=== PATIENT | male | born 1990 | race American Indian/Alaskan Native ===

== ENCOUNTER 2022-04-22 02:45 | Emergency (ER) | payer SELFPAY ==
[2022-04-22] MEDS ORDERED: IPRATROPIUM/ALBUTEROL SULFATE 3 ML AMPUL.NEB IH ONE (03:30)
[2022-04-22] MEDS: methylPREDNISolone Sod Succinate 125 MG/2 ML INJ IM ONE ×2 (04:19→04:23)
--- NOTE | 2022-04-22 04:49 | Emergency Department Report ---
ED Shortness of Breath HPI - General Chief Complaint: Adult Asthma Stated Complaint: ASTHMA ATTACK Time Seen by Provider: 04/22/22 03:30 Source: patient Mode of arrival: Ambulatory Limitations: No Limitations - History of Present Illness Initial Comments: 32-year-old black male with a past medical history of asthma presents to the emergency department for evaluation of 1 hour history of shortness of breath. He states that he left his asthma pump on the other side of town and came here requesting DuoNeb treatment only. He denies fever. Chest pain, nausea, vomiting, dizziness, and diaphoresis. MD Complaint: shortness of breath, "asthma attack" -: hour(s) (1) Pain Scale: 0 Known History Of: asthma Context: other (Left home inhaler) Associated Symptoms: denies other symptoms Treatments Prior to Arrival: none - Related Data Home Oxygen Therapy: No Allergies Allergy/AdvReac Type Severity Reaction Status Date / Time No Known Allergies Allergy Verified 04/22/22 02:59 ED Review of Systems ROS: Stated complaint: ASTHMA ATTACK Other details as noted in HPI Comment: All other systems reviewed and negative Constitutional: denies: chills, fever, malaise, weakness ENT: denies: ear pain, dental pain, congestion Respiratory: shortness of breath, wheezing Cardiovascular: denies: chest pain, palpitations Gastrointestinal: denies: abdominal pain, nausea, vomiting Musculoskeletal: denies: back pain Neurological: denies: headache, weakness ED Past Medical Hx - Past Medical History Previous Medical History?: Yes Hx Asthma: Yes - Surgical History Past Surgical History?: No - Social History Smoking Status: Unknown if ever smoked ED Physical Exam - General Limitations: No Limitations General appearance: alert, in no apparent distress - Head Head exam: Present: atraumatic, normocephalic - Eye Eye exam: Present: normal appearance. Absent: conjunctival injection - ENT ENT exam: Present: normal exam - Neck Neck exam: Present: normal inspection. Absent: tenderness, lymphadenopathy - Respiratory Respiratory exam: Present: wheezes. Absent: respiratory distress, rales, rhonchi, stridor, chest wall tenderness - Cardiovascular Cardiovascular Exam: Present: regular rate, normal heart sounds - GI/Abdominal GI/Abdominal exam: Present: soft, normal bowel sounds. Absent: distended, tenderness - Extremities Exam Extremities exam: Present: normal inspection - Back Exam Back exam: Present: normal inspection - Neurological Exam Neurological exam: Present: alert, oriented X3 - Psychiatric Psychiatric exam: Present: normal affect, normal mood - Skin Skin exam: Present: warm, dry, intact, normal color ED Course Vital Signs 04/22/22 04/22/22 02:56 05:01 Temperature 98.8 F Pulse Rate 90 87 Respiratory 20 12 Rate Blood Pressure 144/74 Blood Pressure 137/72 [Left] O2 Sat by Pulse 98 100 Oximetry ED Medical Decision Making - Medical Decision Making 32-year-old black male with a past medical history of asthma presents to the emergency department for evaluation of 1 hour history of shortness of breath. He states that he left his asthma pump on the other side of [facility] and came here requesting DuoNeb treatment only. He denies fever. Chest pain, nausea, vomiting, dizziness, and diaphoresis. Wheezing and shortness of breath resolved after DuoNeb treatment. Patient refused steroids and prescriptions for steroids and albuterol inhaler stating that he just came for breathing treatment and that is all. He is advised to follow-up with his primary care provider and return to the emergency department as needed. He verbalizes understanding of and agreement with plan of care. Critical care attestation.: If time is entered above; I have spent that time in minutes in the direct care of this critically ill patient, excluding procedure time. ED Disposition Clinical Impression: Shortness of breath Disposition: HOME / SELF CARE / HOMELESS Is pt being admited?: No Does the pt Need Aspirin: No Condition: Stable Instructions: Shortness of Breath, Adult, [id number], Asthma Attack Prevention, Adult Additional Instructions: Continue medications as previously prescribed. Follow-up with your primary care provider. Return to the emergency department as needed. Referrals: MONICA LANDAVERDE MD [Primary Care Provider] - 3-5 Days GENESIS CAREY MD [Staff Physician] - 3-5 Days Time of Disposition: 04:48
[2022-04-22 05:05] VITALS: BP 137/72
== END 2022-04-22 05:15 | disposition home or self-care (01) ==
LOC: ED 02:45
DX: J45.909 Unspecified asthma, uncomplicated (principal)
CPT/HCPCS: 94640; 99282; J2930